=== PATIENT | female | born 2000 | race Two or more races ===

== ENCOUNTER 2024-05-06 11:07 | Emergency (ER) | payer MEDICAID, SELFPAY ==
[2024-05-06 11:11] VITALS: BP 107/76; PULSE 51; TEMP 36.6; O2SAT 98; BMI 23.0
--- NOTE | 2024-05-06 11:43 | ED.ALLEREA1 ---
HPI - Allergic Reaction General Chief complaint: Allergic Reaction Stated complaint: ALLERGIC REACTION FROM MEDS Time Seen by Provider: 05/06/24 11:14 Source: patient Mode of arrival: walk-in History of Present Illness HPI narrative: The patient is being evaluated for left eye redness and discharge that she noted today, she mentioned that this has been a frequent problem for the last few weeks and she should mention that sometimes it alternates, the patient denies any trauma or any blurry vision she also denies any use of contact lenses She mentioned that almost 5 days ago she was treated with fluconazole as well as intravaginal yeast infection treatment that she does not have the name of it for the moment, that she stopped as well but she thinks that this is causing her to have some itching in her skin although there is no specific rash No difficulty breathing no other complaints Related Data Previous Rx's ?Medication ?Instructions ?Recorded loratadine 10 mg tablet (Claritin) 10 mg PO DAILY PRN allergic 05/06/24 symptoms #10 tabs tobramycin 0.3 % eye drops 2 drp ophthalmic (eye) Q4H #5 mL 05/06/24 Allergies Allergy/AdvReac Type Severity Reaction Status Date / Time No Known Drug Allergies Allergy Verified 05/06/24 11:14 Review of Systems ROS Status of ROS 10 or more systems reviewed and unremarkable except as noted in history and below Exam Narrative Exam Narrative: Nurses notes and vital signs reviewed and patient is not hypoxic. General: Well-appearing and in no apparent distress. Skin: Warm, dry, no pallor noted. No rash. Head: Normocephalic, atraumatic. Neck: Supple, non-tender. Eye: Right eye examination was benign left eye examination shows conjunctival erythema as well as no signs of trauma or ulceration there is no hyphema no hypopyon pupils are reactive It was noted also that the patient have mild lower eyelid edema Ears, Nose, Mouth, and Throat: TM are clear, no nasal mucosal hypertrophy. Oral mucosa is moist, no posterior oropharynx erythema, uvula is mid-line Cardiovascular: Regular Rate and Rhythm without murmur, gallop or rub. Respiratory: No accessory muscle use or respiratory distress. Lungs are clear to auscultation, no wheezing, rales or rhonchi Chest Wall: no tenderness Back: No midline thoracic or lumbar vertebral tenderness. No CVA tenderness Musculoskeletal: normal ROM, no calf or popliteal tenderness, no lower extremity edema/swelling GI: Abdomen is soft, non-distended. Normal bowel sounds. No masses appreciated. No tenderness to palpation. No rebound, guarding, or rigidity noted. Neurological: A&O x4. No cranial nerve dysfunction observed. No truncal ataxia. Moves all extremities. Sensation intact. Psychiatric: Cooperative and interactive. Normal mood and affect. Skin examination showed no specific rash Constitutional Vital Signs, click to edit/add: Last Vital Signs Temp 98 F 05/06/24 11:11 Pulse 51 L 05/06/24 11:11 Resp 16 05/06/24 11:11 BP 107/76 05/06/24 11:11 Pulse Ox 98 05/06/24 11:11 Course Vital Signs Vital signs: Vital Signs Temperature 98 F 05/06/24 11:11 Pulse Rate 51 L 05/06/24 11:11 Respiratory Rate 16 05/06/24 11:11 Blood Pressure 107/76 05/06/24 11:11 Pulse Oximetry 98 05/06/24 11:11 Temperature 98 F 05/06/24 11:11 Pulse Rate 51 L 05/06/24 11:11 Respiratory Rate 16 05/06/24 11:11 Blood Pressure 107/76 05/06/24 11:11 Pulse Oximetry 98 05/06/24 11:11 MDM - Allergic Reaction MDM Narrative Medical decision making narrative: Right now the patient itching could be secondary to reaction from her medication that she already took but she already stopped but right now she will be treated with Claritin only for itching with monitoring her symptoms For her left eye the patient will be treated with tobramycin for conjunctivitis The patient instructed about monitoring her symptoms she was instructed about coming back in case of increasing redness or any progression of her symptoms with a new pain or blurry vision Patient that she frequently get conjunctivitis and she was instructed that she needs to follow-up with her primary care for further evaluation The patient is to follow up with primary care physician in next 2-3 days or to return to the emergency department should any of the signs or symptoms worsen or new symptoms develop. The patient agrees with the following Diagnosis and Treatment plan and the patient will be discharged home. Discharge Plan Discharge Stand Alone Forms: Portal Instructions Chief Complaint: Allergic Reaction Clinical Impression: Itch of skin Conjunctivitis Qualifiers: Conjunctivitis type: acute Acute conjunctivitis type: bacterial Laterality: left Qualified Code(s): H10.32 - Unspecified acute conjunctivitis, left eye Patient Disposition: Home, Self-Care Time of Disposition Decision: 11:41 Condition: Good Prescriptions / Home Meds: New tobramycin 0.3 % drops 2 drp ophthalmic (eye) Q4H Qty: 5 0RF Rx Instructions: please apply to the left eye loratadine [Claritin] 10 mg tablet 10 mg PO DAILY PRN (Reason: allergic symptoms) Qty: 10 0RF Print Language: Mauritanian Instructions: Itchy Skin (ED), Conjunctivitis (ED)
[2024-05-06] MEDS: ERYTHROMYCIN OP OINT 0.5% 1 GM TUBE OP (11:46)
== END 2024-05-06 11:51 | disposition home or self-care (01) ==
LOC: ER 11:50
PROVIDERS: Emergency Provider Emergency Medicine
DX: H10.32 Unspecified acute conjunctivitis, left eye (principal); L29.9 Pruritus, unspecified
CPT/HCPCS: 99283

== ENCOUNTER 2024-05-09 13:18 | Emergency (ER) | payer MEDICAID, SELFPAY ==
[2024-05-09 13:24] VITALS: BP 132/83; PULSE 106; TEMP 37.1; O2SAT 97; BMI 23.0
[2024-05-09] MEDS: 0.9 % SODIUM CHLORIDE 1,000 ML 999 ML IV (14:13)
[2024-05-09] MEDS: DIPHENHYDRAMINE HCL 50 MG/ML VIAL 25 MG IV (14:14)
[2024-05-09] MEDS: METHYLPREDNISOLONE SOD SUCC PF 125 MG/2 ML VIAL IVP (14:14)
[2024-05-09 14:19] LABS: Basophils Absolute Auto 0.1 10^3/uL (0.0-0.1); Eosinophils Absolute Auto 0.1 10^3/uL (0.0-0.7); Eosinophils Percent Auto 1.3 % (0.9-7.0); Hematocrit 38.2 % (36.0-48.0); Hemoglobin 12.7 g/dL (12.0-16.0); Immature Granulocytes Abs Auto 0.02 10^3/uL (0.00-0.03); Immature Granulocytes Pct Auto 0.3 % (0.0-0.5); Lymphocytes Absolute Auto 1.5 10^3/uL (1.2-3.8); Lymphocytes Percent Auto 24.4 % (20.5-60.0); Mean Corpuscular HGB Conc 33.2 g/dL (29.9-35.2); Mean Corpuscular Hemoglobin 29.6 pg (26.7-34.0); Mean Platelet Volume 9.2 fL (9.5-13.5); Monocytes Absolute Auto 0.5 10^3/uL (0.3-0.8); Monocytes Percent Auto 7.9 % (1.7-12.0); Neutrophils Percent Auto 65.1 % (43.0-75.0); Platelet Count 283 10^3/uL (150-450); Red Blood Count 4.29 10^6/uL (4.20-5.40); Red Cell Distribution Width 12.4 % (11.0-15.0); White Blood Count 6.2 10^3/uL (4.0-11.0)
[2024-05-09 14:27] LABS: HCG Qualitative NEGATIVE (NEGATIVE); Internal Control Within Normal Limits
[2024-05-09 14:31] LABS: BUN Creatinine Ratio 11.8; Calcium 9.4 mg/dL (8.5-10.1); Carbon Dioxide 25.9 mmol/L (21.0-32.0); Chloride 100 mmol/L (98-107); Estimated GFR (African America >60 (>=60); Estimated GFR (Non-African Ame >60 (>=60); Glucose 84 mg/dL (74-106); Potassium 3.9 mmol/L (3.5-5.1); Sodium 135 mmol/L (136-145)
[2024-05-09 14:41] LABS: Bilirubin Urine SMALL (NEGATIVE); Blood Urine LARGE (NEGATIVE); Clarity Urine CLOUDY (CLEAR); Color Urine LT. YELLOW (YELLOW); Glucose Urine UA NEGATIVE (NEGATIVE); Ketones Urine NEGATIVE (NEGATIVE); Leukocyte Esterase Urine LARGE (NEGATIVE); Nitrite Urine NEGATIVE (NEGATIVE); Protein Urine 30 mg/dL (NEG/TRACE); Specific Gravity Urine 1.025 (1.005-1.025); Urobilinogen Urine 0.2 EU/dL (0.2-1.0); pH Urine 6.5 (5.0-9.0)
[2024-05-09 14:53] LABS: Bacteria Urine MODERATE #/HPF (NONE SEEN); RBC Urine >100 #/HPF (0-2); WBC Urine >100 #/HPF (NONE SEEN)
[2024-05-09 14:54] LABS: Cast Seen? NONE SEEN #/LPF (NONE SEEN); Crystals Seen? None Seen #/HPF (None Seen); Mucus Urine MODERATE (NONE SEEN); Squamous Epithelial Cell Urine MODERATE #/LPF (NONE/RARE); Urine Culture Indicated YES
--- NOTE | 2024-05-09 15:29 | ED.GENADUL1 ---
HPI HPI - General Adult General Chief complaint: Skin/Abscess/Foreign Body Stated complaint: RASH Time Seen by Provider: 05/09/24 13:34 Source: patient Mode of arrival: walk-in Limitations: no limitations History of Present Illness HPI narrative: 23-year-old female presents to the emergency department with itching to her arms and legs. 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 Patient was on a single dose of Diflucan and metronidazole vaginal inserts. She developed discomfort in the vaginal region and diffuse itching throughout her body. She has since discontinued the vaginal inserts and flu Diflucan. This past weekend, she was evaluated in the emergency department for swelling to her eye and placed on tobramycin. She still had some itching and was started on Claritin. The swelling to her eye has improved, but she still having the itching. He also was concerned that the bacterial vaginosis is returning due to some pressure in the pelvic region. She adds that she is on her menstrual cycle as well. Denies any pains to her groin, abdomen. Today, felt generally weak and came in for further evaluation. Denies fever, chills, nausea, vomiting. Quality:?As above Severity:?Mild Timing:?Signs and symptoms over the past 2 weeks waxing and waning Context: Normal setting and activity? Modifying factors:?As above Associated symptoms: As Related Data Previous Rx's ?Medication ?Instructions ?Recorded loratadine 10 mg tablet (Claritin) 10 mg PO DAILY PRN allergic 05/06/24 symptoms #10 tabs tobramycin 0.3 % eye drops 2 drp ophthalmic (eye) Q4H #5 mL 05/06/24 ciprofloxacin HCl 500 mg tablet 500 mg PO BID 7 days #14 tabs 05/09/24 (Cipro) clindamycin phosphate 2 % vaginal 1 appful vaginal DAILY 7 days #40 05/09/24 cream grams prednisone 20 mg tablet 10 mg (1/2 x 20 mg) PO DAILY 5 05/09/24 days #3 tabs Allergies Allergy/AdvReac Type Severity Reaction Status Date / Time No Known Drug Allergies Allergy Verified 05/06/24 11:14 Opioid HPI Opioid Management Most Recent Opioid Data: No Data to Display Review of Systems ROS Constitutional Reports: chills and fatigue; Denies: fever Cardiovascular Denies: chest pain Respiratory Denies: shortness of breath Gastrointestinal Denies: abdominal pain, nausea or vomiting Genitourinary Reports: urinary frequency, pelvic pain (pressure), vaginal bleeding (on menstral cycle) and genital itching; Denies: painful urination Musculoskeletal Denies: joint pain Integumentary/Breast Reports: rash, itching and redness Neurological Denies: headache or dizziness Exam Constitutional Vital Signs, click to edit/add: Last Vital Signs Temp 98.7 F 05/09/24 13:24 Pulse 106 H 05/09/24 13:24 Resp 18 05/09/24 13:24 BP 132/83 05/09/24 13:24 Pulse Ox 97 05/09/24 13:24 O2 Del Method Room Air 05/09/24 13:24 Common normals: no apparent distress, oriented x3 and alert HENMT Common normals: normocephalic and head/scalp atraumatic Respiratory Common normals: normal respiratory effort and clear to auscultation bilaterally Auscultation: clear to auscultation bilaterally Cardio Common normals: regular rate, regular rhythm and no murmurs Rate: regular rate Rhythm: regular rhythm GI Common normals: soft to palpation and non-tender Inspection: normal to inspection Palpation: soft Common normals: no CVA tenderness Uterus palpation: uterus nontender Extremity Other: Patient has patchy redness to both of her arms. Random distribution, slightly raised, wheal-like appearance Neuro Common normals: oriented x3, no focal motor deficits, no sensory deficits noted and gait normal Sensorium/orientation: alert Psych Common normals: thought process normal, cooperative and affect normal Thought process: normal thought process Course Vital Signs Vital signs: Vital Signs Temperature 98.7 F 05/09/24 13:24 Pulse Rate 106 H 05/09/24 13:24 Respiratory Rate 18 05/09/24 13:24 Blood Pressure 132/83 05/09/24 13:24 Pulse Oximetry 97 05/09/24 13:24 Oxygen Delivery Method Room Air 05/09/24 13:24 Temperature 98.7 F 05/09/24 13:24 Pulse Rate 106 H 05/09/24 13:24 Respiratory Rate 18 05/09/24 13:24 Blood Pressure 132/83 05/09/24 13:24 Pulse Oximetry 97 05/09/24 13:24 Oxygen Delivery Method Room Air 05/09/24 13:24 Medical Decision Making MDM Narrative Medical decision making narrative: This is a pleasant 23-year-old female who presents for evaluation of itching, mild pelvic pressure, history of bacterial vaginosis. Worried she has had a reaction to metronidazole inserts, or Diflucan. Has been on Claritin. Also developed some eye swelling over the weekend, was placed on tobramycin ophthalmic and that has since resolved. Today, still has some itching is not feeling a little pressure, like the BV is coming back. Denies any fever, chills, abdominal or pelvic pain. On arrival, afebrile, vital signs are stable. Exam, nontoxic, well-appearing patient in no distress. Heart regular rate and rhythm. Lung sounds clear and equal bilaterally. No tenderness to the abdomen/pelvis region. No distention. Abdomen soft. Labs reveal no leukocytosis, anemia, thrombocytopenia, electrolyte imbalance, renal impairment. test negative. Urinalysis shows greater than 100 red blood cells, greater than 100 white blood cells, moderate squamous epithelials. Urine culture was sent. Favor dermatitis uncertain etiology. Bacterial vaginosis rule out other STI. Urinary tract infection. Acute abdomen less likely based on history and physical exam Ovarian torsion less likely based on history and physical exam Ectopic less likely based on laboratory testing Patient was given IV fluids, Solu-Medrol, Benadryl with overall improvement of her symptoms. Urine culture was sent Chlamydia and GC was ordered Disposition ? The patient was discharged. Plan: Patient will be discharged to home. Condition at time of disposition: stable As there was concern for reaction to metronidazole, she was started on clindamycin vaginally. She was also given prescription for Cipro, prednisone Advised to follow up with primary provider. Advised to return for any worsening and/or development of new, concerning signs or symptoms PLEASE NOTE: Portions of the medical record may have been produced using electronic chief executive and may contain errors with respect to translation of words which may not have been identified prior to finalization of the chart. Medical Records Medical records reviewed: Yes I reviewed the patient's medical records Lab Data Lab results reviewed: Yes I reviewed the patient's lab results Labs: Lab Results 05/09/24 05/09/24 Range/Units 14:08 14:32 WBC 6.2 (4.0-11.0) 10^3/uL RBC 4.29 (4.20-5.40) 10^6/uL Hgb 12.7 (12.0-16.0) g/dL Hct 38.2 (36.0-48.0) % MCV 89.0 (81.0-99.0) fL MCH 29.6 (26.7-34.0) pg MCHC 33.2 (29.9-35.2) g/dL RDW 12.4 (11.0-15.0) % Plt Count 283 (150-450) 10^3/uL MPV 9.2 L (9.5-13.5) fL Neut % (Auto) 65.1 (43.0-75.0) % Lymph % (Auto) 24.4 (20.5-60.0) % [place] % (Auto) 7.9 (1.7-12.0) % Eos % (Auto) 1.3 (0.9-7.0) % Baso % (Auto) 1.0 (0.2-2.0) % Neut # (Auto) 4.0 (1.4-6.5) 10^3/uL Lymph # (Auto) 1.5 (1.2-3.8) 10^3/uL [place] # (Auto) 0.5 (0.3-0.8) 10^3/uL Eos # (Auto) 0.1 (0.0-0.7) 10^3/uL Baso # (Auto) 0.1 (0.0-0.1) 10^3/uL Abs Immat Gran (auto) 0.02 (0.00-0.03) 10^3/uL Imm/Tot Granulo (auto) 0.3 (0.0-0.5) % Sodium 135 L (136-145) mmol/L Potassium 3.9 (3.5-5.1) mmol/L Chloride 100 (98-107) mmol/L Carbon Dioxide 25.9 (21.0-32.0) mmol/L Anion Gap 13.0 BUN 10.0 (7.0-18.0) mg/dL Creatinine 0.85 (0.55-1.02) mg/dL Est GFR ( Amer) >60 (>=60) Est GFR (Non-Af Amer) >60 (>=60) BUN/Creatinine Ratio 11.8 Glucose 84 (74-106) mg/dL Calcium 9.4 (8.5-10.1) mg/dL Serum HCG, Qual Negative (NEGATIVE) Urine Color Lt. yellow (YELLOW) Urine Clarity Cloudy A (CLEAR) Urine pH 6.5 (5.0-9.0) Ur Specific [place] 1.025 (1.005-1.025) Urine Protein 30 A (NEG/TRACE) mg/dL Urine Glucose (UA) Negative (NEGATIVE) mg/dL Urine Ketones Negative (NEGATIVE) mg/dL Urine Occult Blood Large A (NEGATIVE) Urine Nitrite Negative (NEGATIVE) Urine Bilirubin Small A (NEGATIVE) Urine Urobilinogen 0.2 (0.2-1.0) EU/dL Ur Leukocyte Esterase Large A (NEGATIVE) Urine RBC >100 A (0-2) #/HPF Urine WBC >100 A (NONE SEEN) #/HPF Ur Squamous Epith Cells Moderate A (NONE/RARE) #/LPF Urine Crystals None seen (None Seen) #/HPF Urine Bacteria Moderate A (NONE SEEN) #/HPF Urine Casts None seen (NONE SEEN) #/LPF Urine Mucus Moderate A (NONE SEEN) Ur Culture Indicated? Yes Discharge Plan Discharge Stand Alone Forms: Portal Instructions Chief Complaint: Skin/Abscess/Foreign Body Clinical Impression: Dermatitis, BV (bacterial vaginosis) UTI (urinary tract infection) Qualifiers: Urinary tract infection type: site unspecified Hematuria presence: with hematuria Qualified Code(s): N39.0 - Urinary tract infection, site not specified Patient Disposition: Home, Self-Care Time of Disposition Decision: 15:10 Condition: Good Mode of Transportation: Private Vehicle Prescriptions / Home Meds: New prednisone 20 mg tablet 10 mg PO DAILY 5 Days Qty: 3 0RF clindamycin phosphate 2 % cream 1 appful vaginal DAILY 7 Days Qty: 40 0RF Rx Instructions: for 3 days ciprofloxacin HCl [Cipro] 500 mg tablet 500 mg PO BID 7 Days Qty: 14 0RF No Action tobramycin 0.3 % drops 2 drp ophthalmic (eye) Q4H Qty: 5 0RF Rx Instructions: please apply to the left eye loratadine [Claritin] 10 mg tablet 10 mg PO DAILY PRN (Reason: allergic symptoms) Qty: 10 0RF Print Language: [place]ian Instructions: Bacterial Vaginosis (ED), Urinary Tract Infection in Women (DC), Dermatitis (ED) Referrals: OBGYN, YOUR [Other] - 05/10/24 Physician,Non-Staff, [Primary Care Provider] - 1 week Discharge Date/Time: 05/09/24 15:26
[2024-05-11 03:08] LABS: Neisseria gonorrhoeae, NAA Negative (Negative)
== END 2024-05-09 15:26 | disposition home or self-care (01) ==
PROVIDERS: Physician Assistant; Emergency Provider Emergency Medicine
DX: N76.0 Acute vaginitis (principal); L30.9 Dermatitis, unspecified
CPT/HCPCS: 36415; 80048; 81001; 84703; 85025; 87086; 87150; 87491; 87591; 96374; 96375; 99284; J1200; J2919